=== PATIENT | male | born 2005 | race Caucasian/White ===

== ENCOUNTER 2024-07-30 16:09 | Emergency (ER) | payer BC ==
[2024-07-30] MEDS: predniSONE 20 MG Tab PO ONE (17:23)
[2024-07-30] MEDS: diphenhydrAMINE 50 MG Cap PO ONE (17:23)
[2024-07-30] MEDS: Famotidine 20 MG Tab PO ONE (17:23)
== END 2024-07-30 17:51 | disposition home or self-care (01) ==
LOC: JD.ED 16:09
DX: T78.40XA Allergy, unspecified, initial encounter (principal); L50.9 Urticaria, unspecified; Z91.018 Allergy to other foods; Z88.8 Allergy status to other drugs, medicaments and biological substances; X58.XXXA Exposure to other specified factors, initial encounter
CPT/HCPCS: 99283; A9270; J7512; Q0163; 99282